=== PATIENT | male | born 1970 | race Caucasian/White ===

== ENCOUNTER 2016-10-07 05:01 | Emergency (ER) | payer OTHER ==
[~2016-10-07 05:01] MED LIST: ADDERALL; AMARYL PO; AMARYL1 MG; AUGMENTIN875 M1 PO; BACTRIM DS TABL1 TA2 PO; CIPRO PO; CLEOCIN HCL300 M1 PO; CLOTRIM ANTIFUN15 G1 TOP; DIFLUCAN PO; FENOFIBRATE40 MG; FLEXERIL10 MG PO; GLUCOTROL PO; GRALISE1 EACH; HYDROCODON-ACE1 EAC7 PO; IBUPROFEN800 MG PO; INDERAL40 MG PO; KETOPROFEN PO; LOPID600 MG PO; LYRICA; METFORMIN HCL500 M1 PO; METFORMIN HYDRO25 GM; NORCO1 TAB 10/3 PO; PRAVACHOL; PROPRANOLOL PO; SYNTHROID; VOLTAREN75 MG PO; ZYRTEC10 M1 PO
== END 2016-10-09 18:35 | disposition home or self-care (01) ==
LOC: SED 05:01
DX: N48.1 Balanitis (principal); F32.9 Major depressive disorder, single episode, unspecified; E11.9 Type 2 diabetes mellitus without complications; Z88.5 Allergy status to narcotic agent; Z88.2 Allergy status to sulfonamides; Z88.8 Allergy status to other drugs, medicaments and biological substances
CPT/HCPCS: 99282

== ENCOUNTER 2017-01-04 12:00 | Inpatient (IN) | payer OTHER ==
--- NOTE | ~2017-01-04 | PN ---
Unit #: [id number] #: [id number] Patient: ROB REED JR [id number] [facility] [address] [place] [address] [id number] MR#: [id number] NAME: ROB REED JR ROOM: P178 Age: 46 Sex: M Admission Date: 01/05/2017 : 1970 Attending Physician: Darwin Tomlin M.D. Admitting Physician: Darwin Tomlin M.D. Primary Care Physician: Matthias Bob PROGRESS NOTES DATE 01/08/2017 DISCUSSION Mr. Reed is a 46-year-old white male with substance abuse and mood disorder who was seen today and chart was reviewed and case was discussed with the staff. He appears to be doing better and he has been calm and cooperative and has been showing improvement in his detox symptoms. MENTAL STATUS EXAMINATION Middle-aged white male who was casually dressed with fair personal hygiene and appears to be in no acute distress or discomfort. He was awake and alert on interaction with intact orientation. His mood was anxious with congruent affect. He denies any suicidal or homicidal ideation. His insight and judgement remains slightly impaired. TREATMENT PLAN 1. Will continue on his current medications and treatment protocol. Will monitor his response to the medications and make further adjustments as needed. 2. Will follow up. Dictated by... Matthias Garcia/emily TD: 01/08/2017 19:48 JOB #: [id number] Unit #: [id number] #: [id number] Patient: ROB REED JR [facility] PROGRESS NOTES Page 1 of 1 X Darwin Tomlin MD PROGRESS NOTE
--- NOTE | ~2017-01-04 | HP ---
Unit #: [id number] #: [id number] Patient: ROB REED JR [id number] [place] [address] [id number] I MR#: [id number] NAME: ROB REED JR ROOM: P178 Age: 46 Sex: M Admission Date: 01/05/2017 : 1970 Attending Physician: Darwin Tomlin M.D. Admitting Physician: Darwin Tomlin M.D. Primary Care Physician: Danny Meek M.D. HISTORY AND PHYSICAL HISTORY OF PRESENT ILLNESS The patient is a 46-year-old man who states he is admitted due to suicidal ideation. PAST MEDICAL HISTORY Significant for diabetes and tremors. PAST SURGICAL HISTORY Significant for bilateral elbow surgery and retinal bleeding. SOCIAL HISTORY Positive for methamphetamine. ALLERGIES Morphine and Bactrim. FAMILY HISTORY Noncontributory. REVIEW OF SYSTEMS CONSTITUTIONAL: No fever or chills. HEENT: Denies any sore throat, ear pain or runny nose. CARDIOVASCULAR: Denies chest pain, irregular heart rhythm or palpitations. CHEST: Denies shortness of breath or cough. No hemoptysis. GASTROINTESTINAL: Denies nausea, vomiting, diarrhea or chronic constipation. ENDOCRINE: Denies history of increased thirst or urination. No recent significant weight loss or gain. GENITOURINARY: Denies dysuria, frequency, or hematuria. SKIN: Denies any rashes. HEMATOLOGIC: Denies history of increased bleeding or bruising. MUSCULOSKELETAL: Denies any hot, swollen joints. No generalized muscle pain. NEUROLOGIC: Denies problems with vision or speech. No frequent, severe headaches. No numbness, tingling or weakness in any extremities. Denies loss of bladder or bowel control. CURRENT MEDICATIONS 1. Metformin 1000 mg twice daily 2. Methocarbamol 500 mg p.o. daily 3. Fenofibrate 160 mg p.o. daily Unit #: [id number] #: [id number] Patient: ROB REED JR 4. Amaryl 4 mg p.o. twice daily 5. Pravastatin 20 mg p.o. daily 6. Propranolol 40 mg p.o. daily 7. Ventolin 2 puffs q.6 hours p.r.n. PHYSICAL EXAMINATION GENERAL: Alert, oriented in no acute distress. VITAL SIGNS: Temperature 98, heart rate 108, blood pressure 119/101, respiration 16. HEIGHT: 5 feet 8 inches WEIGHT: 254 pounds SKIN: Warm and dry without rash. Scars to bilateral knees, right wrist, bilateral elbows, tattoo to the left shoulder. HEENT: Normocephalic. TMs not viewed. Oral and nasal passages clear. Conjunctivae clear. PERRLA. EOMs intact. NECK: Supple without lymphadenopathy or thyromegaly. HEART: Regular rate and rhythm without murmur. LUNGS: Clear. ABDOMEN: Soft, nontender, without masses or hepatosplenomegaly. : Not done. EXTREMITIES: No evidence of cyanosis, clubbing or edema. Moves all without focal deficit. NEUROLOGICAL: Grossly within normal limits. Cranial Nerves: II: Visual dupree are intact. III, IV AND : Extraocular movements are intact. Pupils are equal, round and reactive to light. V: Facial sensation is grossly normal. VII: Facial movements and expression are normal. VIII: Auditory acuity grossly intact. IX, X: Uvula is midline. Phonation is normal. XI: Patient shrugs shoulders and turns head normally. XII: Tongue protrudes in the midline. Sensory and Motor Function: Sensory and motor sensation is grossly normal. Motor: moves all extremities well. Coordination: Gait is normal. Deep Tendon Reflexes: Intact. IMPRESSION Psychiatric admission. RECOMMENDATIONS Psychiatric, per psychiatrist. MEDICAL: I see no contraindications to participating in facility's activities. MEDICAL PROGNOSIS Good. Dictated by... Tatum ThayerRSilvino BECK/baldev TD: 01/06/2017 02:38 Unit #: [id number] #: [id number] Patient: ROB REED JOB #: [id number] HISTORY AND PHYSICAL Page 1 of 1 X Loranie Grace APR X HISTORY AND PHYSICAL
--- NOTE | ~2017-01-04 | PN ---
Unit #: [id number] #: [id number] Patient: ROB REED [id number] [facility] [address] [place] [address] [id number] I MR#: [id number] NAME: ROB REED JR ROOM: P178 Age: 46 Sex: M Admission Date: 01/05/2017 : 1970 Attending Physician: Darwin Tomlin M.D. Admitting Physician: Darwin Tomlin M.D. Primary Care Physician: Matthias Bob PROGRESS NOTES DATE January 07, 2017 DISCUSSION Mr. Reed is a 46-year-old white male, who was seen today and chart was reviewed and the case was discussed with the staff. He reports doing better and has been coming out of the detox without any complications and he has been taking the medications and tolerating them fairly well. MENTAL STATUS EXAMINATION Middle-aged white male, who was casually dressed with fair personal hygiene and appears to be in no acute distress or discomfort. He was awake and alert on interaction with intact orientation. His mood is anxious with a congruent affect. He denies any suicidal or homicidal ideations. His insight and judgment remain slightly impaired. TREATMENT PLAN 1. We will continue him on his current medications and treatment protocol, and will monitor his response, and make further adjustments as needed. 2. We will continue to followup. Dictated by... Matthias Garcia/giovana TD: 01/08/2017 09:41 JOB #: [id number] [facility] PROGRESS NOTES Page 1 of 1 X Darwin Tomlin MD PROGRESS NOTE
--- NOTE | ~2017-01-04 | CO ---
Unit #: [id number] #: [id number] Patient: ROB REED [id number] [place] [address] [id number] I MR#: [id number] NAME: ROB REED JR ROOM: P178 Age: 46 Sex: M Admission Date: 01/05/2017 : 1970 Attending Physician: Darwin Tomlin M.D. Primary Care Physician: Danny Meek M.D. Consultation Date: 01/06/2017 CONSULTATION REPORT CECIL Blanco is a 46-year-old with history of diabetes mellitus. He admits that he has been noncompliant with medications. His blood sugars have been elevated. We will continue his home medications of Amaryl 4 mg b.i.d. and Glucophage 1000 mg b.i.d. He tells me that he has a followup with his primary care in the next couple of weeks. Dictated by... Liset Tyler P.A.-C. for Matthias Phelan/alex TD: 01/08/2017 02:16 JOB #: [id number] CONSULTATION REPORT Page 1 of 1 X Liset Tyler CONSULTATION REPORT
--- NOTE | ~2017-01-04 | PN ---
Unit #: [id number] #: [id number] Patient: ROB REED JR [id number] [facility] [address] [place] [address] [id number] I MR#: [id number] NAME: ROB REED JR ROOM: P178 Age: 46 Sex: M Admission Date: 01/05/2017 : 1970 Attending Physician: Darwin Tomlin M.D. Admitting Physician: Darwin Tomlin M.D. Primary Care Physician: Matthias Bob PROGRESS NOTES DATE January 06, 2017 DISCUSSION Mr. Gray is a 46-year-old white male, who was seen today and chart was reviewed and the case was discussed with the staff. He has been anxious, withdrawn, but has not shown any agitation or irritability, and been calm and cooperative with the treatment recommendations and he has been taking the medications and tolerating them fairly well. MENTAL STATUS EXAMINATION Middle-aged white male, who was casually dressed with fair personal hygiene and appears to be in no acute distress or discomfort. He was awake and alert on interaction with intact orientation. His mood is anxious with a congruent affect. He denies any suicidal or homicidal ideations. His insight and judgment remain slightly impaired. TREATMENT PLAN 1. We will continue him on his current medications and treatment protocol, and will monitor his response to the medications, and make further adjustments as needed. 2. We will continue to followup. Dictated by... Matthias Garcia/giovana TD: 01/07/2017 08:13 JOB #: [id number] Unit #: [id number] #: [id number] Patient: ROB REED JR PROGRESS NOTES Page 1 of 1 X Darwin Tomlin MD X PROGRESS NOTE
--- NOTE | ~2017-01-04 | DS ---
Unit #: [id number] #: [id number] Patient: ROB REED JR [id number] [facility] [address] [place] [address] [id number] MR#: [id number] NAME: ROB REED JR ROOM: P178 Age: 46 Sex: M Admission Date: 01/05/2017 : 1970 Discharge Date: 01/09/2017 Attending Physician: Darwin Tomlin M.D. Primary Care Physician: Danny Meek M.D. DISCHARGE SUMMARY IDENTIFYING DATA Mr. Reed is a 46-year-old white male who is a resident of [place], [place] and was self-referred to the hospital on a voluntary basis. DISCHARGE DIAGNOSES Psychiatric: Major depressive disorder, recurrent, moderate, without psychotic features. Medical: Diabetes mellitus, dyslipidemia, gastroesophageal reflux disease. Stressors: Moderate psychosocial stressors. HISTORY OF PRESENT ILLNESS Please see initial psychiatric evaluation for details. PAST PSYCHIATRIC HISTORY Please see initial psychiatric evaluation for details. PAST MEDICAL HISTORY Please see initial psychiatric evaluation for details. HOSPITAL COURSE The patient was admitted to the adult psychiatric unit at [facility] and was oriented to the hospital environment. Routine p.r.n. medications were initiated, and he was started back on his home medications and medications were adjusted and Lexapro was initiated as an antidepressant and he was closely monitored. He was taking the medications regularly and was tolerating them fairly well and was able to show a decent and therapeutic response with improvement in depression and anxiety, and as such, it was decided that he will be discharged home and will continue treatment on an outpatient basis. DISCHARGE MEDICATIONS Amaryl 4 mg b.i.d. for diabetes, Inderal 40 mg a day for hypertension, Proventil inhaler 2 puffs every 6 hours as needed for asthma, pravastatin 20 mg at bedtime for dyslipidemia, fenofibrate a day for constipation, and Lexapro 10 mg a day for depression. DISCHARGE CONDITION Stable. PROGNOSIS Fair. Unit #: [id number] #: [id number] Patient: ROB REED JR Dictated by... Darwin Tomlin M.D. IAA/aubreyl TD: 01/09/2017 07:22 JOB #: [id number] DISCHARGE SUMMARY Page 1 of 1 X Darwin Tomlin MD DISCHARGE SUMMARY
--- NOTE | ~2017-01-04 | PA ---
Unit #: [id number] #: [id number] Patient: ROB REED [id number] [place] [address] [id number] I MR#: [id number] NAME: ROB REED JR ROOM: P178 Age: 46 Sex: M Admission Date: 01/05/2017 : 1970 Date of Assessment: Attending Physician: Darwin Tomlin M.D. Admitting Physician: Darwin Tomlin M.D. Primary Care Physician: Danny Meek M.D. PSYCHIATRIC ASSESSMENT DATE OF SERVICE 01/05/2017. IDENTIFYING DATA Mr. Reed is a 46-year-old white male, who is a resident of [place], [place], and was self-referred to the hospital on a voluntary basis. CHIEF COMPLAINT "Suicidal ideations and plan." HISTORY OF PRESENT ILLNESS Mr. Reed is a 46-year-old white male, who was brought to the hospital. Upon presentation, he reports that he has been having suicidal ideation and has a plan and presented to the emergency room after intentional overdosing on his diabetic medication and was irritable, but responsive and admitted to take medications and an attempt to end his life and stated that a break up between him and his girlfriend was the catalyst. He stated that he was left homeless and with limited support and that he did not have any more respect left on him and that he has long suffered from depression, but admits that he has not receiving any treatment for his depression other than when he was incarcerated. He constantly stated that he is still had desire to be and had no support system and seen to be a significant threat to himself and as such, recommendation for inpatient level of care for safety and stabilization was made and the patient was transferred to us. SUBSTANCE ABUSE HISTORY The patient denies any history of alcohol or drug abuse. PAST PSYCHIATRIC HISTORY The patient has not had any prior inpatient or outpatient psychiatric treatment. Review of the medical records indicate currently is not active in treatment program, is not seeing a psychiatrist, not taking any psychotropic medications. PAST MEDICAL HISTORY Diabetes mellitus, dyslipidemia, asthma. ALLERGIES Morphine, sulfa drugs, and Flexeril. PERSONAL AND SOCIAL HISTORY Unit #: [id number] #: [id number] Patient: ROB REED JR A 46-year-old white male, who reports that he is single, unemployed, and essentially homeless and has poor social support system. MENTAL STATUS EXAMINATION Middle-aged white male, who was casually dressed with fair personal hygiene, appears to be in no acute distress or discomfort. He was awake and alert on interaction with intact orientation to time, place, and person. His mood was anxious and depressed with a congruent affect. His speech was slow and restricted in content. His thought processes were disorganized with some looseness of associations and flight of ideas and suicidal ideations. His insight and judgment remain significantly impaired. DIAGNOSTIC IMPRESSION Psychiatric: Major depressive disorder, recurrent, moderate, without psychotic features. Medical: Diabetes mellitus, dyslipidemia, and gastroesophageal reflux disease. Stressors: Moderate psychosocial stressors. TREATMENT PLAN 1. The patient has presented with history of mood disorder and substance abuse and has been decompensating and will need inpatient hospitalization for detoxification, safety, and stabilization. We will start him back on his home medications. We will adjust the medications and monitor response. 2. Supportive therapy was provided to the patient. 3. Safe, structured, and nourishing environment will be reported. ESTIMATED LENGTH OF STAY 5 to 7 days. ABILITY TO HELP SELF Limited. WILLINGNESS TO HELP SELF The patient appears to be willing to help self. STRENGTHS 1. Communicative. 2. Cooperative. PROBLEMS 1. Chronic dysphoric symptoms. 2. Chronic chemical dependency. 3. Poor social support system. DISCHARGE CRITERIA This will be contingent upon the patient's ability to show resolution of his depression and anxiety as well as ability to stay safe to himself, particularly after discharge from the hospital. Dictated by... Matthias Garcia/alex TD: 01/05/2017 15:03 Unit #: [id number] #: [id number] Patient: ROB REED JR JOB #: [id number] PSYCHIATRIC ASSESSMENT Page 1 of 1 X Darwin Tomlin MD PSYCHIATRIC ASSESSMENT
[2017-01-06 10:03] LABS: BASOPHIL% 0.7 % (0-2.5); EOSINOPHIL# 0.2 X10e3 (0-0.7); EOSINOPHIL% 3.2 % (0.0-7.0); HEMATOCRIT 40.6 % (38.0-50.0); HEMOGLOBIN 13.8 gm/dL (13.0-16.0); LYMPHOCYTE# 2.1 X10e3 (1.0-3.5); LYMPHOCYTE% 32.5 % (17.0-45.0); MEAN CELL VOLUME 83.2 FL (83-96); MEAN CORPUSCULAR HEMOGLOBIN 28.3 PG (28-34); MEAN PLATELET VOLUME 10.6 FL (6.5-11.5); MONOCYTE# 0.7 X10e3 (0-1.0); MONOCYTE% 10.5 % (3.0-12.0); NEUTROPHIL# 3.5 X10e3 (1.5-7.1); NEUTROPHIL% 53.1 % (40-75); PLATELET COUNT 167 X10e3 (140-420); RED BLOOD COUNT 4.89 X10e (3.90-5.60); RED CELL DISTRIBUTION WIDTH 13.7 % (11.0-15.5); WHITE BLOOD COUNT 6.5 X10e3 (4.0-10.5)
[2017-01-06 10:10] LABS: DIFF IND NO
[2017-01-06 10:19] LABS: ALBUMIN SERUM 3.8 g/dL (3.5-5.0); BILIRUBIN,TOTAL 0.3 mg/dL (0.2-2.0); BUN/CREATININE RATIO 24.44; CALCIUM SERUM 9.2 mg/dL (8.4-10.2); CREATININE SERUM 0.9 mg/dL (0.6-1.4); GLOM FILT RATE Estimated 102.1 mL/min (>60); POTASSIUM 3.8 mmol/L (3.5-5.1); PROTEIN TOTAL SERUM 6.6 g/dL (6.0-8.3)
[2017-01-08 10:03] LABS: URINE APPEARANCE TURBID; URINE BILIRUBIN NEG (NEG); URINE BLOOD NEG (NEG); URINE COLOR YELLOW; URINE GLUCOSE 500 MG/DL (NEG); URINE KETONE NEG (NEG); URINE LEUKOCYTE ESTERASE NEG (NEG); URINE NITRATE NEG (NEG); URINE PH 5.5 (5-8); URINE PROTEIN 1+ (NEG); URINE SPECIFIC GRAVITY 1.025 (1.003-1.035); URINE UROBILINOGEN 0.2 MG/DL (NEG)
[2017-01-08 10:06] LABS: URBCS1 AUWI 0-2 /[HPF] (0-2); URINE BACTERIA AUWI NEG (NEGATIVE); URINE SQUAMOUS EPITHELIAL CELL NONE SEEN /[HPF]; UWBCS1 AUWI 0-2 (0-5)
[2017-01-08 10:09] LABS: CULTURE INDICATED? NO
[2017-01-08 10:44] LABS: AMPHETAMINE NEG (NEG); BARBITURATES NEG (NEG); BENZODIAZEPINES NEG (NEG); COCAINE NEG (NEG); MARIJUANA NEG (NEG); OPIATES NEG (NEG); TRICYCLIC ANTIDEPRESSANTS NEG (NEG); U METHADONE NEG (NEG)
== END 2017-01-09 07:50 | disposition home or self-care (01) | DRG 885 ==
LOC: P1E 01-05 00:19
PROVIDERS: Psychiatry & Neurology Psychiatry
DX: F33.1 Major depressive disorder, recurrent, moderate (principal); E11.8 Type 2 diabetes mellitus with unspecified complications; R45.851 Suicidal ideations; E78.5 Hyperlipidemia, unspecified; K21.9 Gastro-esophageal reflux disease without esophagitis
CPT/HCPCS: 80053; 80307; 81003; 82947; 85025

== ENCOUNTER 2017-01-26 19:50 | Emergency (ER) | payer OTHER ==
[~2017-01-26] VITALS: Ht 165.1 cm; Wt 79.4 kg
[2017-01-26] MEDS ORDERED: LEXAPRO (20:01)
[2017-01-26 20:36] LABS: BASOPHIL# 0.1 X10e3 (0-0.3); EOSINOPHIL# 0.1 X10e3 (0-0.7); EOSINOPHIL% 1.5 % (0.0-7.0); HEMATOCRIT 38.6 % (38.0-50.0); HEMOGLOBIN 13.4 gm/dL (13.0-16.0); LYMPHOCYTE# 1.3 X10e3 (1.0-3.5); LYMPHOCYTE% 15.9 % (17.0-45.0); MEAN CELL VOLUME 83.3 FL (83-96); MEAN CORPUSCULAR HEMOGLOBIN 28.9 PG (28-34); MEAN CORPUSCULAR HGB CONC 34.7 g/dL (30-36); MEAN PLATELET VOLUME 10.6 FL (6.5-11.5); MONOCYTE# 0.9 X10e3 (0-1.0); MONOCYTE% 10.8 % (3.0-12.0); NEUTROPHIL# 5.7 X10e3 (1.5-7.1); NEUTROPHIL% 70.8 % (40-75); PLATELET COUNT 166 X10e3 (140-420); RED BLOOD COUNT 4.63 X10e (3.90-5.60); RED CELL DISTRIBUTION WIDTH 13.9 % (11.0-15.5); WHITE BLOOD COUNT 8.1 X10e3 (4.0-10.5)
[2017-01-26 20:39] LABS: DIFF IND NO
[2017-01-26 20:52] LABS: BUN/CREATININE RATIO 23.33; CALCIUM SERUM 9.1 mg/dL (8.4-10.2); CREATININE SERUM 0.9 mg/dL (0.6-1.4); GLOM FILT RATE Estimated 102.1 mL/min (>60); POTASSIUM 3.8 mmol/L (3.5-5.1)
== END 2017-01-26 21:27 | disposition home or self-care (01) ==
LOC: SED 19:50
PROVIDERS: Physician Assistant Medical
DX: L03.115 Cellulitis of right lower limb (principal); L02.415 Cutaneous abscess of right lower limb; Z88.5 Allergy status to narcotic agent; Z88.2 Allergy status to sulfonamides; Z88.8 Allergy status to other drugs, medicaments and biological substances; Z79.84 Long term (current) use of oral hypoglycemic drugs; Z79.899 Other long term (current) drug therapy
CPT/HCPCS: 36415; 80048; 85025; 96374; 99283